=== PATIENT | male | born 1955 | race Caucasian/White ===

== ENCOUNTER → 2017-02-28 | Outpatient (CLI) | payer MEDICARE, OTHER ==
[~2017-02-28] MED LIST: /METO25TAB PO; /WARF25TA GT; /WARF25TA PO; ACAR50TA2 PO; ALLO300T2 PO; ASPI1TAB PO; ASPI81CH21 PO; CELE40TA PO; CITA40TA PO; COLC0.6T34 PO; COUM2.5T17 PO; COUM7.5T PO; FENOFIBRATE PO; HYDR12CA PO; IBUP-1114 PO; INDO50CA PO; INDOPOW PO; LISI20TA PO; LISINOPRIL/HCTZ PO; METF750T PO; METO25TA4 PO; OMEP20CA3 PO; OMEPPOW18 PO; OXYC-274 PO; PARO10TA2 PO; PERC5TAB12 PO; PERC7.5T12 PO; PERCOCET PO; SIMV20TA2 PO; TYLE325T5 PO; WARF5VL PO; ZOLO50TA PO; ZYLO300T4 PO
--- NOTE | 2017-02-28 12:02 | REP ---
Chest two views HISTORY: Preop Comparison: 09/03/2013 The lungs are clear. The heart is normal in size. The pulmonary vasculature is normal in appearance. The bony structure is intact. IMPRESSION: No acute disease. Signed by Sumanth Cintron MD 02/28/2017 11:53 A
[2017-02-28 12:32] LABS: INR 1.03
[2017-02-28 12:36] LABS: MEAN CORPUSCULAR HEMOGLOBIN 32.2 pg (27.0-33.0); MEAN CORPUSCULAR HGB CONC 34.2 g/dl (32.0-36.5); RED CELL DISTRIBUTION WIDTH 12.6 % (11.5-14.5); WHITE BLOOD COUNT 7.1 K/mm3 (4.0-10.0)
[2017-02-28 13:36] LABS: ALBUMIN 3.9 GM/DL (3.2-5.2); ALBUMIN/GLOBULIN RATIO 1.18 (1.00-1.93); ALKALINE PHOSPHATASE 71 U/L (45-117); ALT/SGPT 52 U/L (12-78); ANION GAP 9 MEQ/L (8-16); AST/SGOT 30 U/L (15-37); BILIRUBIN,TOTAL 0.5 MG/DL (0.2-1.0); BLOOD UREA NITROGEN 17 MG/DL (7-18); CARBON DIOXIDE LEVEL 31 MEQ/L (21-32); CHLORIDE LEVEL 100 MEQ/L (98-107); CREATININE FOR GFR 0.81 MG/DL (0.70-1.30); GLOMERULAR FILTRATION RATE > 60.0 (>49); GLUCOSE, FASTING 113 MG/DL (80-110); POTASSIUM SERUM 3.9 MEQ/L (3.5-5.1); SODIUM LEVEL 140 MEQ/L (136-145); TOTAL PROTEIN 7.2 GM/DL (6.4-8.2)
--- NOTE | 2017-02-28 21:21 | ECGEPIP ---
Stationary ECG Study [facility] Test Date: 2017-02-28 Pat Name: SANTANA CUNNINGHAM Department: Room: - Gender: M Network Programmer: : [id number] Requested By: Gaviota Mao Order Number: [id number] Reading MD: Tristin Agee Measurements Intervals [place] Rate: 65 P: 54 AK: 192 QRS: -2 QRSD: 92 T: 1 QT: 403 QTc: 419 Interpretive Statements Normal sinus rhythm Normal EKG No significant change when compared to prior tracing of 09/03/2013 Electronically Signed On 02-28-2017 21:20:53 EDT by Tristin Agee
== END ==
LOC: M ADMPAT 10:30
PROVIDERS: ATTEND Orthopaedic Surgery
DX: Z01.818 Encounter for other preprocedural examination (principal); M16.11 Unilateral primary osteoarthritis, right hip; G47.30 Sleep apnea, unspecified; I10 Essential (primary) hypertension; E78.00 Pure hypercholesterolemia, unspecified; R73.09 Other abnormal glucose; Z79.01 Long term (current) use of anticoagulants

== ENCOUNTER 2017-03-14 06:04 | Inpatient (IN) | payer MEDICARE, OTHER ==
[2017-02-28 11:20] VITALS: BP 140/90
--- NOTE | 2017-03-07 10:25 | HPE ---
DATE OF ANTICIPATED ADMISSION: 03/14/2017 ATTENDING PHYSICIAN: Gaviota Peralta MD CHIEF COMPLAINT: Right hip pain and stiffness. HISTORY: Patient is a pleasant, 61-year-old male presenting to clinic with progressively worsening right hip pain and stiffness. He has failed to improve with conservative measures so he consented for an elective right total hip arthroplasty with Dr. Quinn. MEDICAL OPTIMIZATION: Pending with Dr. Nichols. CURRENT MEDICATIONS: - acarbose 50 mg daily - aspirin 81 mg daily - hydrochlorothiazide 12.5 mg daily - ibuprofen 400 mg as needed - indomethacin 50 mg as needed - lisinopril/hydrochlorothiazide 20/12.5 mg daily - metformin 750 mg daily - metoprolol 25 mg daily - omeprazole 20 mg daily - Tylenol 325 mg as needed - Zoloft 50 mg daily - allopurinol 300 mg twice daily CHRONIC MEDICAL CONDITIONS: Hypertension. Hyperlipidemia. Diabetes. Anxiety. Depression. Gastroesophageal reflux disease. PAST SURGICAL HISTORY: Right shoulder arthroscopy. Bilateral total knee arthroplasties. SOCIAL HISTORY: Patient is not a smoker and occasionally uses alcohol. REVIEW OF SYSTEMS: Patient denies fever, chills, nausea, vomiting or diarrhea. He denies chest pain, shortness of breath, lightheadedness, headaches or cough. No complaints of abdominal pain. He does have continued pain with weightbearing activities and activities of daily living in the right hip. EXAM: Well-nourished, well-developed male, in no apparent distress. Neck: Supple without lymphadenopathy or jugular venous distention (JVD). Heart: Regular rate and rhythm. Lungs: Clear to auscultation bilaterally. Abdomen: Positive bowel sounds, soft. No tenderness to palpation. Musculoskeletal: Patient is walking with a limp favoring the right lower extremity. He does have significantly decreased internal and external rotation at the right hip. Flexion and extension overall okay. Right lower extremity strength is normal. The is hip irritability elicited with range of motion. His calf is soft, nontender to palpation with no palpable cords noted. Pedal pulses are palpable. Capillary refill is brisk and sensation is intact. Vital Signs: Blood pressure 170/98. Heart rate 80. Respirations 14. Height 6 feet. Weight 275. Temperature 97.6. LABORATORY DATA: Chest x-ray: No acute disease. EKG: Normal sinus rhythm. Nasal and sinus culture reveals normal trini. Urinalysis negative and urine culture shows no growth. Prothrombin time 13.6. INR 1.03. Comprehensive metabolic profile: Glucose elevated at 113, BUN 17, creatinine 0.81, glomerular filtration rate greater than 60, sodium 140, potassium 3.9, chloride 100, CO2 31, anion gap 9, calcium 9, AST 30, ALT 52, alkaline phosphatase 71, total bilirubin 0.5, total protein 7.2, albumin 3.9, albumin globulin ratio 1.18. Complete blood count: WBC 7.1, RBC 5.20, platelets 158. Erythrocyte sedimentation rate is 2. IMPRESSION: 1. Right hip osteoarthritis with x-rays notable for end-stage degenerative changes. 2. Hypertension. PLAN: 1. Patient has consented for an elective right total hip arthroplasty with Dr. Quinn. Medical optimization pending with Dr. Nichols. 2. Blood pressure elevated in clinic today. This should not stop surgery as long blood pressure normalized during his medical clearance appointment and the day of surgery. AVIVA
[~2017-03-14] VITALS: Ht 182.9 cm; Wt 117.9 kg
[2017-03-14] VITALS (9 sets, daily range): BP systolic 136–204; BP diastolic 86–128; O2SAT 92
[~2017-03-14 06:04] MED LIST changes: -COUM2.5T17 PO; -PERC5TAB12 PO
[2017-03-14] MEDS ORDERED: ceFAZolin 1GM INJ (J0690) As Ordered ONE (06:13)
[2017-03-14] MEDS ORDERED: ACETAMINOPHEN 500 MG TAB PO ONE (06:15)
[2017-03-14] MEDS ORDERED: LIDOCAINE 1% MDV 20ML VIAL SC ONE (06:15)
[2017-03-14] MEDS ORDERED: LR 1,000 ML IV ONE (06:15)
[2017-03-14] MEDS ORDERED: LIDOCAINE 2% INJ 100 MG/5 ML SDV (FOR ANES.) As Ordered ONE (07:55)
[2017-03-14] MEDS ORDERED: PROPOFOL 200 MG/20 ML VIAL As Ordered ONE ×3 (07:55→09:38)
[2017-03-14] MEDS ORDERED: MIDAZOLAM INJ 2 MG/2 ML VIAL (J2250) As Ordered ONE (07:55)
[2017-03-14] MEDS ORDERED: fentaNYL 100 MCG/2 ML INJECTION (J3010) As Ordered ONE ×2 (07:55→09:07)
[2017-03-14] MEDS ORDERED: METOPROLOL TART 25 MG TABLET PO SCH (09:00)
[2017-03-14] MEDS ORDERED: MORPHINE 1MG/ML IN 0.9% NACL 100ML IV BAG As Ordered ONE (10:39)
[2017-03-14] MEDS ORDERED: EPIDURAL/PCA KEYS XX PRN (10:45)
[2017-03-14] MEDS ORDERED: fentaNYL 100 MCG/2 ML INJECTION (J3010) IV PRN (10:45)
[2017-03-14] MEDS ORDERED: ONDANSETRON 4MG/2ML VIAL (J2405) IV PRN ×2 (10:45)
[2017-03-14] MEDS ORDERED: LR 1,000 ML IV SCH (10:45)
[2017-03-14] MEDS ORDERED: HYDROmorphone HCL 1 MG/ML SYRINGE (J1170) IV PRN (10:45)
[2017-03-14] MEDS ORDERED: NALBUPHINE HCL 10 MG/ML AMP (J2300) IV PRN (10:45)
[2017-03-14] MEDS ORDERED: PERCOCET 5MG/325MG TAB PO PRN (10:45)
[2017-03-14] MEDS ORDERED: NALOXONE INJ 0.4 MG/1 ML VIAL (J2310) IV PRN (10:45)
[2017-03-14] MEDS ORDERED: diphenhydrAMINE INJ 50MG/ML VIAL (J1200) IV PRN (10:45)
[2017-03-14] MEDS: MORPHINE 1MG/ML IN 0.9% NACL 100ML IV BAG IV PRN ×2 (10:55→23:35)
[2017-03-14] MEDS ORDERED: FLEET ENEMA PR PRN (11:00)
[2017-03-14] MEDS ORDERED: ACETAMINOPHEN TAB 650MG DOSE (2X325MG) PO PRN (11:00)
[2017-03-14] MEDS ORDERED: GLUCOSE 4 GM CHEW TABLET PO PRN (11:45)
[2017-03-14] MEDS ORDERED: DEXTROSE 50% 50 ML SYRINGE IV PRN (11:45)
[2017-03-14] MEDS ORDERED: ALLOPURINOL 300 MG TAB PO SCH (11:45)
[2017-03-14] MEDS ORDERED: GLUCAGON FOR INJ 1 MG VIAL (J1610) SC PRN (11:45)
[2017-03-14] MEDS: HumaLOG INSULIN (NovoLOG) PER UNIT SC SCH ×3 (12:00→21:00)
--- NOTE | 2017-03-14 12:16 | RO ---
DATE OF PROCEDURE: 03/14/2017 PREPROCEDURE DIAGNOSIS: Right hip osteoarthritis. POSTPROCEDURE DIAGNOSIS: Right hip osteoarthritis. PROCEDURE: Right total hip arthroplasty using a size 56 [place] cup with a neutral polyethylene liner with a high offset size #7 Williams stem with a 1.5 neck and a 36 mm ceramic head. SURGEON: Dr. Gaviota Quinn. GAMBLING DEALER: Ms. Kari Blanco. ANESTHESIA: Spinal. COMPLICATIONS: None. SPECIMENS: Femoral head. ESTIMATED BLOOD LOSS: 200 mL. PROCEDURE: Antibiotics were given intravenously preoperatively and then he was taken to the operating room where spinal anesthetic was induced. Ha catheter placed. He was placed in lateral decubitus position. Right hip upper most. Duncan hip positioner was utilized, axillary roll utilized down leg so the peroneal nerve was protected. The right hip area was then carefully prepped and draped in the usual sterile fashion and then after appropriate time out, a longitudinal incision was made for a direct lateral approach. Bovie cautery used to coagulate crossing vessels down to the tensor fascia divided in line with the skin incision. We split the gluteus medius anterior one-third posterior two-third junctions and then carried down and divided the underlying gluteus minimus and anterior hip capsule dividing it and then carefully dissecting off the proximal femur as we actually rotated the hip. He had significant amount of circumferential capturing osteophytes and we were unable to dislocate the hip and thus this, after multiple attempts of releasing the labrum and doing appropriate soft tissue releases, we elected to perform the femoral neck osteotomy while the hip was reduced which I did with a saw taking great care to protect the surrounding soft tissues. I was then able to externally rotate the hip placing the leg bag anteriorly and then identify the piriformis fossa, then place the starter reamer followed by the canal finding reamer then the lateralizing reamer, then we reamed up to a size #7. The femoral neck osteotomy cut was then adjusted with the template and then we began broaching up to a size #7 broach and we trimmed the proximal femur several times with a saw to be sure it was flush with the prosthesis. Once we were satisfied with the fit and fill of the #7 prosthesis, broach was removed and we exposed the acetabulum, performed a labral incision 360 degrees. We then began reaming beginning at 46 mm and then advanced up to 55. A trial 56 eventually was able to get in and it fit very snugly. We used the extramedullary alignment jig to help assess and estimate appropriate abduction and anteversion. Once we copiously pulsatile, lavage, irrigated out the hip joint several times throughout the operation then placed the real 56 cup. It fit nicely and then the real polyethylene was placed and we made sure it seated appropriately. We then exposed the femur, irrigated copiously, placed a #7 broach once again and trialed first with a standard neck 1.5 length. Cup seemed to be in good position because it was actually relatively stable with flexion, internal rotation and extension, external rotation, but I felt it needed more offset to minimize the soft tissue impingement. We trialed then with the higher offset stem with a 1.5 neck and it appeared to fit appropriately with good stability in flexion, internal rotation and extension and external rotation. Minimal soft tissue telescoping, and given the fact that his leg length was a bit long actually on this operative side, I elected to stay with a 1.5 neck length as opposed to the +5. Thus I removed the trial components, copiously pulsative, lavage, irrigated out the hip canal once again, placed the real #7 stem, dried the [place], placed the ceramic head 36 mm x 1.5 mm long and then reduced the hip. We then carefully closed the gluteus minimus and medius back anatomically to the trochanter with interrupted #1 PDS sutures. We closed the vastus lateralis as well with interrupted #1 PDS sutures, irrigated between layers, closed the tensor fascia with a combination of interrupted #1 PDS sutures then a running #1 STRATAFIX. We irrigated again, closed the deep subdermal tissues with interrupted #2-0 PDS sutures, skin was closed with gianluca covered by Adaptic dry sterile bulky dressing. He was placed in his abduction pillow brace while he was in lateral position, then turned supine, transferred to the bed and then to the recovery room in stable condition. There were no intraoperative complications. Ms. Kari Blanco, my PA commercial lending assistant was critical to the success of this very difficult operation given the size of his leg by helping to manipulate the leg in and out of the leg bag, helped with appropriate soft tissue retraction, helped to close the wound, helped to transfer the patient as necessary for me to perform the operation smoothly and efficiently.
--- NOTE | 2017-03-14 13:10 | IPN ---
DATE: 03/14/2017 SUBJECTIVE: The patient tells me that he is feeling well. He has no complaints of pain at this time. He denies chest pain, shortness of breath, fevers, chills, nausea, vomiting, or diarrhea. OBJECTIVE: VITAL SIGNS: Temperature 97.3, pulse 59, respiratory rate 20, blood pressure 145/76, oxygen saturation 96% on room air. GENERAL: He is a morbidly obese man laying in bed at a 60 degree angle watching television. He is accompanied by his . The patient does not appear to be in any acute distress whatsoever. HEENT: Cranials II-XII grossly intact. He has moist mucous membranes. Difficult to assess for any elevation in central venous pressure secondary to his large neck. CARDIOVASCULAR EXAM: S1, S2, regular. He is not bradycardic on my exam. RESPIRATORY EXAM: Clear. ABDOMINAL EXAM: Obese. Bowel sounds are present. The abdomen is soft and nontender. EXTREMITIES: His right hip dressing is clean, dry and intact. No clubbing, cyanosis or edema. LABORATORY STUDIES: Fasting glucose 143, otherwise no recent labs or imaging. ASSESSMENT AND PLAN: This is a 61-year-old man postoperative day zero for a right total hip arthroplasty. PROBLEM: 1. Right hip osteoarthritis postoperative day zero. Pain control, deep vein thrombosis (DVT) prophylaxis, Ha catheter, physical therapy, perioperative care all as per orthopedic surgery. 2. Hypertension. The patient will be continued on his metoprolol tartrate and hydrochlorothiazide with holding parameters. Will place his lisinopril on hold. 3. Osteoarthritis. Will defer to orthopedic surgery for pain management. Will hold his home Tylenol as well as indomethacin. 4. Gout. Continue with allopurinol. 5. Anxiety and depression. Continue with Zoloft. 6. Gastroesophageal reflux disease. Continue with omeprazole. 7. Type 2 diabetes. Will hold his acarbose and metformin and provide him with sliding scale insulin coverage while in hospital. DISPOSITION: Will continue to follow along with you regarding this interesting patient. Thank you for involving us in his care. Please call with any specific questions.
[2017-03-14] MEDS: hydroCHLOROthiazide 12.5 MG CAPSULE PO SCH (13:34)
[2017-03-14] MEDS: LR 1,000 ML IV SCH ×2 (13:35→20:29)
[2017-03-14] MEDS ORDERED: WARFARIN SOD 5 MG TAB PO ONE (17:00)
[2017-03-14] MEDS ORDERED: METOPROLOL TART 25 MG TABLET PO ONE ×2 (18:15→21:45)
[2017-03-15] VITALS (7 sets, daily range): BP systolic 152–169; BP diastolic 82–110; O2SAT 90
[2017-03-15 06:33] LABS: MEAN CORPUSCULAR HEMOGLOBIN 33.3 pg (27.0-33.0); MEAN CORPUSCULAR HGB CONC 36.2 g/dl (32.0-36.5); RED CELL DISTRIBUTION WIDTH 12.4 % (11.5-14.5); WHITE BLOOD COUNT 12.2 K/mm3 (4.0-10.0)
[2017-03-15 06:42] LABS: INR 1.12
[2017-03-15] MEDS ORDERED: PERCOCET 5MG/325MG TAB PO PRN (07:00)
[2017-03-15] MEDS ORDERED: ONDANSETRON 4 MG TAB (S0181) PO PRN (07:00)
[2017-03-15 07:06] LABS: ANION GAP 6 MEQ/L (8-16); BLOOD UREA NITROGEN 12 MG/DL (7-18); CALCIUM LEVEL 8.3 MG/DL (8.8-10.2); CARBON DIOXIDE LEVEL 32 MEQ/L (21-32); CHLORIDE LEVEL 98 MEQ/L (98-107); CREATININE FOR GFR 0.78 MG/DL (0.70-1.30); GLOMERULAR FILTRATION RATE > 60.0 (>49); GLUCOSE, FASTING 139 MG/DL (80-110); POTASSIUM SERUM 3.9 MEQ/L (3.5-5.1); SODIUM LEVEL 136 MEQ/L (136-145)
[2017-03-15] MEDS: HumaLOG INSULIN (NovoLOG) PER UNIT SC SCH ×4 (07:38→21:00)
[2017-03-15] MEDS: OMEPRAZOLE 20 MG CAP PO SCH (07:38)
[2017-03-15] MEDS: MIRALAX *UNIT DOSE* 17GM PACKET PO SCH (07:38)
[2017-03-15] MEDS: MOM 30ML SUSPENSION UDC PO SCH (07:38)
[2017-03-15] MEDS: hydroCHLOROthiazide 12.5 MG CAPSULE PO SCH (07:39)
[2017-03-15] MEDS: LISINOPRIL 20 MG TAB PO SCH (07:39)
[2017-03-15] MEDS: SENOKOT S TAB PO SCH ×2 (07:39→20:14)
[2017-03-15] MEDS: PERCOCET 5MG/325MG TAB PO PRN ×4 (07:39→20:15)
[2017-03-15] MEDS: SERTRALINE HCL 50 MG TAB PO SCH (07:40)
[2017-03-15] MEDS: METOPROLOL TART 25 MG TABLET PO SCH ×2 (07:40→20:15)
--- NOTE | 2017-03-15 13:10 | REP ---
RIGHT HIP, TWO VIEWS: Two views of the right hip are performed. There is no acute fracture. There is a total hip prosthesis which appears to be in good position. Structures are well aligned. Metallic skin gianluca are seen laterally. Signed by Josh Zamora MD 03/15/2017 02:25 P
[2017-03-15] MEDS ORDERED: WARFARIN SOD 5 MG TAB PO ONE (17:00)
[2017-03-16] MEDS: PERCOCET 5MG/325MG TAB PO PRN ×5 (01:16→20:20)
[2017-03-16 05:52] VITALS: BP 158/83
[2017-03-16 06:25] LABS: MEAN CORPUSCULAR HGB CONC 35.7 g/dl (32.0-36.5); MEAN CORPUSCULAR VOLUME 92.5 fl (80.0-96.0); RED CELL DISTRIBUTION WIDTH 12.3 % (11.5-14.5)
[2017-03-16 06:31] LABS: INR 1.25
[2017-03-16 07:00] LABS: ANION GAP 8 MEQ/L (8-16); BLOOD UREA NITROGEN 9 MG/DL (7-18); CARBON DIOXIDE LEVEL 32 MEQ/L (21-32); CHLORIDE LEVEL 99 MEQ/L (98-107); CREATININE FOR GFR 0.65 MG/DL (0.70-1.30); GLOMERULAR FILTRATION RATE > 60.0 (>49); GLUCOSE, FASTING 157 MG/DL (80-110); POTASSIUM SERUM 3.8 MEQ/L (3.5-5.1); SODIUM LEVEL 139 MEQ/L (136-145)
[2017-03-16] MEDS ORDERED: ENOXAPARIN 40 MG/0.4 ML SYRINGE (J1650) SC ONE (07:30)
[2017-03-16] MEDS: MOM 30ML SUSPENSION UDC PO SCH (07:44)
[2017-03-16] MEDS: HumaLOG INSULIN (NovoLOG) PER UNIT SC SCH ×4 (07:44→20:20)
[2017-03-16] MEDS: MIRALAX *UNIT DOSE* 17GM PACKET PO SCH (07:44)
[2017-03-16] MEDS: LISINOPRIL 20 MG TAB PO SCH (07:45)
[2017-03-16] MEDS: SERTRALINE HCL 50 MG TAB PO SCH (07:45)
[2017-03-16] MEDS: SENOKOT S TAB PO SCH ×2 (07:45→20:19)
[2017-03-16] MEDS: OMEPRAZOLE 20 MG CAP PO SCH (07:45)
[2017-03-16] MEDS: METOPROLOL TART 25 MG TABLET PO SCH ×2 (07:46→20:20)
[2017-03-16] MEDS: hydroCHLOROthiazide 12.5 MG CAPSULE PO SCH (07:46)
[2017-03-16 10:00] LABS: YEAST LIKE CELL URINE AUTO SMALL
--- NOTE | 2017-03-16 12:01 | REP ---
SINGLE VIEW CHEST: COMPARISON: 02/28/2017 There is no evidence of acute infiltrate. No pleural effusion is seen. The heart is normal in size. The mediastinal silhouette is unremarkable. The visualized osseous structures are intact. IMPRESSION: No acute pulmonary disease. Signed by Josh Zamora MD 03/16/2017 07:33 P
[2017-03-16 14:00] VITALS: BP 158/90
[2017-03-16 16:32] VITALS: BP 148/84
[2017-03-16] MEDS ORDERED: WARFARIN SOD 7.5 MG TAB PO ONE (17:00)
[2017-03-16 22:00] VITALS: BP 160/85
[2017-03-17 06:00] VITALS: BP 131/72
[2017-03-17 06:37] LABS: INR 1.25
[2017-03-17 06:40] LABS: MEAN CORPUSCULAR HEMOGLOBIN 33.1 pg (27.0-33.0); MEAN CORPUSCULAR HGB CONC 35.6 g/dl (32.0-36.5); MEAN CORPUSCULAR VOLUME 92.9 fl (80.0-96.0); RED CELL DISTRIBUTION WIDTH 12.3 % (11.5-14.5); WHITE BLOOD COUNT 9.3 K/mm3 (4.0-10.0)
[2017-03-17 07:07] LABS: ANION GAP 6 MEQ/L (8-16); BLOOD UREA NITROGEN 8 MG/DL (7-18); CALCIUM LEVEL 7.8 MG/DL (8.8-10.2); CARBON DIOXIDE LEVEL 32 MEQ/L (21-32); CHLORIDE LEVEL 101 MEQ/L (98-107); CREATININE FOR GFR 0.63 MG/DL (0.70-1.30); GLOMERULAR FILTRATION RATE > 60.0 (>49); GLUCOSE, FASTING 137 MG/DL (80-110); POTASSIUM SERUM 3.7 MEQ/L (3.5-5.1); SODIUM LEVEL 139 MEQ/L (136-145)
[2017-03-17] MEDS: OMEPRAZOLE 20 MG CAP PO SCH (07:41)
[2017-03-17] MEDS: SENOKOT S TAB PO SCH (07:41)
[2017-03-17] MEDS: HumaLOG INSULIN (NovoLOG) PER UNIT SC SCH ×2 (07:41→12:32)
[2017-03-17] MEDS: MOM 30ML SUSPENSION UDC PO SCH (07:41)
[2017-03-17] MEDS: MIRALAX *UNIT DOSE* 17GM PACKET PO SCH (07:41)
[2017-03-17] MEDS: SERTRALINE HCL 50 MG TAB PO SCH (07:42)
[2017-03-17] MEDS: PERCOCET 5MG/325MG TAB PO PRN ×2 (07:43→13:07)
[2017-03-17 07:45] VITALS: BP 131/72
[2017-03-17] MEDS: hydroCHLOROthiazide 12.5 MG CAPSULE PO SCH (07:45)
[2017-03-17] MEDS: METOPROLOL TART 25 MG TABLET PO SCH (07:45)
[2017-03-17] MEDS: LISINOPRIL 20 MG TAB PO SCH (07:45)
[2017-03-17] MEDS ORDERED: INFLUENZA QUADRIVALENT PF VACCINE 0.5ML SYRINGE (90686) IM ONE (09:00)
[2017-03-17] MEDS ORDERED: PERC5TAB12 PO (09:06)
[2017-03-17] MEDS ORDERED: COUM2.5T17 PO (09:06)
--- NOTE | 2017-03-20 11:15 | DSES ---
DATE OF ADMISSION: 03/14/2017 DATE OF DISCHARGE: 03/17/2017 ATTENDING PHYSICIAN: Gaviota Quinn MD ADMITTING DIAGNOSIS: Osteoarthritis, right hip. OTHER DIAGNOSES: 1. Hypertension. 2. Gout. 3. Anxiety/depression. 4. Gastric reflux disease. 5. Diabetes type 2. DISCHARGE DIAGNOSIS: Osteoarthritis right hip status post right total hip arthroplasty. OPERATION PERFORMED: Right total hip arthroplasty. HISTORY: This a 61-year-old male patient with progressively worsening right hip pain and stiffness. He failed to improve with conservative management. He was admitted for elective hip replacement on right side. OPERATION PERFORMED: Right total hip arthroplasty. HOSPITAL COURSE: The patient was admitted on day of surgery, underwent a right total hip arthroplasty, which was uneventful. He did well postoperative period and his hospital course was without complications. He was up with physical therapy per their protocol. His pain was controlled. On the day of discharge, he was doing well, weightbearing as tolerated on his right lower extremity. He will use adjusted dose Coumadin and thromboembolic deterrent stockings (TEDS) for 30 days postoperative for deep vein thrombosis (DVT) prophylaxis. He will resume his preoperative medications and diet. He was given instructions to include, but not limited too, wound monitoring and activity limitations. He will use oral pain medications for pain control. He will followup in our office in 10-14 days for surgical followup. Please refer to the medical record for further details.
== END 2017-03-17 13:40 | disposition home health service (06) | DRG 470 ==
LOC: M OR 06:04 → M MS5PR 11:35
PROVIDERS: ADMIT Orthopaedic Surgery; ATTEND Orthopaedic Surgery
PROC: 0SR904Z Replacement of Right Hip Joint with Ceramic on Polyethylene Synthetic Substitute, Open Approach (ICD-10-PCS; principal; 2017-03-14 07:30)
DX: M16.11 Unilateral primary osteoarthritis, right hip (principal); Z79.899 Other long term (current) drug therapy; Z79.82 Long term (current) use of aspirin; I10 Essential (primary) hypertension; E78.5 Hyperlipidemia, unspecified; E11.9 Type 2 diabetes mellitus without complications; F41.9 Anxiety disorder, unspecified; K21.9 Gastro-esophageal reflux disease without esophagitis; Z96.651 Presence of right artificial knee joint; Z96.652 Presence of left artificial knee joint; M10.9 Gout, unspecified; F32.9 Major depressive disorder, single episode, unspecified

== ENCOUNTER → 2017-03-28 | Outpatient (REF) | payer MEDICARE, OTHER ==
[~2017-03-28] MED LIST changes: +COUM2.5T17 PO; +PERC5TAB12 PO
[2017-03-28 11:34] LABS: INR 1.85
== END ==
LOC: M LABDRAW1 09:55
PROVIDERS: ATTEND Nurse Practitioner Family
DX: Z79.01 Long term (current) use of anticoagulants (principal)

== ENCOUNTER → 2017-09-11 | Outpatient (CLI) | payer MEDICARE, OTHER | LOC: M RAD 10:56 | DX: M51.26 Other intervertebral disc displacement, lumbar region (principal); M51.27 Other intervertebral disc displacement, lumbosacral region | CPT/HCPCS: 72148 ==

== ENCOUNTER → 2022-02-23 | Outpatient (REF) | payer MEDICARE, OTHER ==
[~2022-02-23] MED LIST changes: -/METO25TAB PO; -/WARF25TA GT; -/WARF25TA PO; -ACAR50TA2 PO; +ACAR50TA3 PO; -ASPI1TAB PO; +ASPI81TA26 PO; +COUM1TAB18 GT; +COUM1TAB18 PO; -INDO50CA PO; +INDO50CA91 PO; -LISI20TA PO; +LISI20TA35 PO; -METF750T PO; +METF750T36 PO; +METO1TAB87 PO; +OMEP1CAP73 PO; -OMEP20CA3 PO; +OXYC1TAB23 PO; -PERCOCET PO; +SIMV20TA22 PO; -ZYLO300T4 PO; +ZYLO300T6 PO
[2022-02-27 16:53] LABS: FOLATE > 24.0 NG/ML; VITAMIN B12 LEVEL 639 PG/ML
== END ==
LOC: M LAB REF 15:58
PROVIDERS: ATTEND Internal Medicine
DX: R41.81 Age-related cognitive decline (principal)

== ENCOUNTER → 2024-10-29 | Outpatient (REF) | payer MEDICARE, OTHER | LOC: M SFHCDERM 13:42 | PROVIDERS: ATTEND Nurse Practitioner Family | DX: D48.5 Neoplasm of uncertain behavior of skin (principal); C44.519 Basal cell carcinoma of skin of other part of trunk ==